=== PATIENT | male | born 1950 | race Hispanic/Latino ===

== ENCOUNTER 2024-03-16 15:03 | Emergency (ER) | payer MEDICARE ==
[~2024-03-16] VITALS: Ht 165.1 cm; Wt 72.6 kg
[2024-03-16 16:21] LABS: BASOPHILS # (AUTO) 0.1 (0.0-0.1); BASOPHILS % 0.6 % (0.0-1.0); EOSINOPHILS # (AUTO) 0.1 (0.0-0.4); EOSINOPHILS % 0.9 % (0.0-6.0); HEMATOCRIT 23.4 % (38.2-49.6); HEMOGLOBIN 7.8 g/dL (14.0-18.0); LYMPHOCYTES % 28.6 % (18.0-39.1); MEAN CORPUSCULAR HEMOGLOBIN 29.5 pg (28-32); MEAN CORPUSCULAR HGB CONC 33.3 g/dL (31-35); MEAN CORPUSCULAR VOLUME 88.6 fL (81-99); MONOCYTES # (AUTO) 0.9 (0.2-0.8); MONOCYTES % 8.8 % (4.4-11.3); NEUTROPHILS # (AUTO) 6.3 (2.1-6.9); NEUTROPHILS % 60.5 % (38.7-80.0); PLATELET COUNT 278 x10e3/uL (140-360); RED BLOOD COUNT 2.64 x10e6/uL (4.3-5.7); RED CELL DISTRIBUTION WIDTH 14.4 % (11.7-14.4); WHITE BLOOD COUNT 10.45 x10e3/uL (4.8-10.8)
[2024-03-16 16:24] LABS: INR 0.89; PROTHROMBIN TIME 12.7 seconds (11.9-14.5)
[2024-03-16 16:25] LABS: PARTIAL THROMBOPLASTIN TIME 24.9 seconds (23.8-35.5)
[2024-03-16 16:33] LABS: ALBUMIN 3.6 g/dL (3.5-5.0); ALBUMIN/GLOBULIN RATIO 1.4 (0.8-2.0); ANION GAP 12.6 mmol/L (8-16); BILIRUBIN,TOTAL 0.4 mg/dL (0.2-1.2); CALCIUM 8.1 mg/dL (8.4-10.2); CREATININE, SERUM 0.98 mg/dL (0.72-1.25); POTASSIUM 4.6 mmol/L (3.5-5.1); TOTAL PROTEIN 6.1 g/dL (6.5-8.1)
[2024-03-16] MEDS ORDERED: IOPAMIDOL 370 MG/ML 100 ML INFUS..BTL INJ ONE (17:03)
[2024-03-16] MEDS ORDERED: SODIUM CHLORIDE 0.9% 100 ML ONE (17:03)
[2024-03-16 18:53] VITALS: TEMP 98.2
[2024-03-16] MEDS ORDERED: ONDANSETRON HCL INJ 2MG/ML 2ML 2 MG/ML VIAL IV STA (20:14)
[2024-03-16] MEDS ORDERED: Morphine 4mg INJECTION 4 MG/ML INJ IV ONE (20:15)
[2024-03-16 21:00] VITALS: PULSE 63; RESP 17
[2024-03-16 22:05] VITALS: BP 115/62; PULSE 63; RESP 16; TEMP 98.3; O2SAT 100
== END 2024-03-16 21:37 | disposition short-term general hospital (02) ==
LOC: ER 15:56
DX: K92.2 Gastrointestinal hemorrhage, unspecified (principal); D64.9 Anemia, unspecified; E87.1 Hypo-osmolality and hyponatremia; I10 Essential (primary) hypertension
CPT/HCPCS: 36415; 74174; 80053; 80320; 85025; 85610; 85730; 86850; 86900; 93005; 99284; J2270; J2405; J2470; J7050; Q9967